=== PATIENT | male | born 1990 | race Two or more races ===

== ENCOUNTER 2020-02-27 20:07 | Emergency (ER) | payer SELFPAY ==
[~2020-02-27] VITALS: Ht 180.3 cm; Wt 81.6 kg
[2020-02-27 20:10] VITALS: BP 143/96
--- NOTE | 2020-02-27 20:10 | NUR ---
ED Nurse Note: Pt denies wanting to harm himself.
--- NOTE | 2020-02-27 20:10 | NUR ---
ED Nurse Note: Pt brought into ED by [facility] 68 from a [facility] house for drug OD on unknown substance. Per [facility], staff at house states pt has tendency of using opiates. Pt states "I took a bunch of pills". Pt also admits to using alcohol today. Unknown substance of drugs and quanity noted. Pt presents awake and able to state his name but is lethargic. Pt connected to court monitor, placed in gown. IV access already established en route by [facility], labs drawn and sent to lab.
--- NOTE | 2020-02-27 20:15 | NUR ---
ED Nurse Note: Pt has consistent hiccups. Oxygen saturation is 100% on RA.
--- NOTE | 2020-02-27 20:43 | Emergency Room Report ---
History of Present Illness General Chief Complaint: Overdose Source: EMS Present Illness HPI Disclaimer: Please note that this report is being documented using DRAGON technology. This can lead to erroneous entry secondary to incorrect interpretation by the dictating instrument. HPI: 29-year-old male presents for evaluation of altered mental status. He was found outside a [facility] house by EMS for suspected drug abuse. The patient admits to taking several pills but cannot specify which. Also admits to drinking alcohol. He is otherwise mumbling nonsensically moving all extremities , difficulty with concentrating and somnolent. He appears intoxicated. No evidence of trauma. Patient cannot provide any significant history. PMH: Unable to obtain PSH: Unable to obtain Allergies: Haldol reported by EMS Social Hx: Unable to obtain Allergies: Coded Allergies: HALOPERIDOL (Verified Allergy, Unknown, 02/27/20) COVID-19 Screening Contact w/high risk pt: No Recent Travel to affected area: No Experienced COVID-19 symptoms?: No Nursing Documentation-PMH Past Medical History: No Stated History Review of Systems All Other Systems: negative except mentioned in HPI Physical Exam Vital Signs Date Time Temp Pulse Resp B/P (MAP) Pulse Ox O2 Delivery O2 Flow Rate FiO2 02/27/20 20:00 98.2 96 16 143/96 (112) 100 Room Air General: Awake, altered, no acute distress HEENT: NC/AT. EOMI. pupils are approximately 3 mm and weakly reactive bilaterally. Dry mucous membranes. Cardiovascular: RRR. S1 and S2 normal. No murmur appreciated Resp: Normal work of breathing. No cough, wheezing or crackles appreciated Abdomen: Abdomen is soft, nondistended. Nontender Skin: Intact. No abrasions, laceration or rash over the exposed skin MSK: Normal tone and bulk. Moving all extremities. No obvious deformity. Neuro: Awake, confused, mumbling incoherently. Occasionally will answer questions appropriately. Somnolent. GCS 13. Medical Decision Making Diagnostic Impression: Primary Impression: Alcohol intoxication ER Course 29-year-old male presents for evaluation of altered mental status. Differential includes was not limited to intoxication, drug abuse, electrolyte abnormality, dehydration, sepsis, trauma. Arrives with stable vital signs though acutely confused and altered. He is protecting his airway his GCS is 15. No evidence of trauma on exam and the patient does not appear septic at this time. Suspect intoxication or drug abuse and the patient admits to this as well. Labs were largely unremarkable aside from elevated alcohol level of 360. The patient was initially combative with staff and soft restraints were required however those were quickly discontinued. The patient will be allowed to metabolize in the emergency department and discharge once he is clinically sober. Laboratory Tests Test 02/27/20 20:15 02/27/20 21:20 White Blood Count 10.1 K/UL (4.8-10.8) Red Blood Count 5.30 M/UL (4.70-6.10) Hemoglobin 14.4 G/DL (14.2-18.0) Hematocrit 44.9 % (42.0-52.0) Mean Corpuscular Volume 85 FL (80-99) Mean Corpuscular Hemoglobin 27.1 PG (27.0-31.0) Mean Corpuscular Hemoglobin Concent 31.9 G/DL (32.0-36.0) L Red Cell Distribution Width 13.3 % (11.6-14.8) Platelet Count 358 K/UL (150-450) Mean Platelet Volume 6.3 FL (6.5-10.1) L Neutrophils (%) (Auto) 65.8 % (45.0-75.0) Lymphocytes (%) (Auto) 26.0 % (20.0-45.0) Monocytes (%) (Auto) 6.6 % (1.0-10.0) Eosinophils (%) (Auto) 0.8 % (0.0-3.0) Basophils (%) (Auto) 0.9 % (0.0-2.0) Sodium Level 142 MMOL/L (136-145) Potassium Level 3.7 MMOL/L (3.5-5.1) Chloride Level 105 MMOL/L (98-107) Carbon Dioxide Level 23 MMOL/L (21-32) Anion Gap 15 mmol/L (5-15) Blood Urea Nitrogen 10 mg/dL (7-18) Creatinine 1.0 MG/DL (0.55-1.30) Estimated Glomerular Filtration Rate > 60 mL/min (>60) Glucose Level 113 MG/DL (74-106) H Calcium Level 8.8 MG/DL (8.5-10.1) Total Bilirubin 0.4 MG/DL (0.2-1.0) Aspartate Amino Transferase (AST) 23 U/L (15-37) Alanine Aminotransferase (ALT) 31 U/L (12-78) Alkaline Phosphatase 81 U/L (46-116) Total Protein 8.2 G/DL (6.4-8.2) Albumin 4.4 G/DL (3.4-5.0) Globulin 3.8 g/dL Albumin/Globulin Ratio 1.2 (1.0-2.7) Salicylates Level 2.0 ug/mL (2.8-20) L Acetaminophen Level < 2 MCG/ML (10-30) L Serum Alcohol 360 mg/dL Urine Opiates Screen Negative (NEGATIVE) Urine Barbiturates Screen Negative (NEGATIVE) Phencyclidine (PCP) Screen Negative (NEGATIVE) Urine Amphetamines Screen Negative (NEGATIVE) Urine Benzodiazepines Screen Negative (NEGATIVE) Urine Cocaine Screen Negative (NEGATIVE) Urine Marijuana (THC) Screen Negative (NEGATIVE) EKG Diagnostic Results EKG Time: 20:14 Rate: normal Rhythm: NSR ST Segments: no acute changes Other Impression Sinus tachycardia with normal axis, normal intervals, no ST segment changes. Rhythm Strip Diag. Results Rhythm Strip Time: 20:14 EP Interpretation: yes Rate: 90s Rhythm: NSR, no PVC's, no ectopy Last Vital Signs Date Time Temp Pulse Resp B/P (MAP) Pulse Ox O2 Delivery O2 Flow Rate FiO2 02/27/20 20:00 98.2 96 16 143/96 (112) 100 Room Air Disposition: HOME, SELF-CARE Condition: Stable Zhen Meza MD February 27, 2020 20:43
[2020-02-27 21:02] LABS: BASOPHILS % (AUTO) 0.9 % (0.0-2.0); EOSINOPHILS % (AUTO) 0.8 % (0.0-3.0); HEMATOCRIT 44.9 % (42.0-52.0); HEMOGLOBIN 14.4 G/DL (14.2-18.0); MEAN CORPUSCULAR VOLUME 85 FL (80-99); MONOCYTES % (AUTO) 6.6 % (1.0-10.0); NEUTROPHILS % (AUTO) 65.8 % (45.0-75.0); PLATELET COUNT 358 K/UL (150-450); RED CELL DISTRIBUTION WIDTH 13.3 % (11.6-14.8); WHITE BLOOD COUNT 10.1 K/UL (4.8-10.8)
[2020-02-27 21:03] LABS: ANION GAP 15 mmol/L (5-15); BLOOD UREA NITROGEN 10 mg/dL (7-18); CALCIUM 8.8 MG/DL (8.5-10.1); CARBON DIOXIDE 23 MMOL/L (21-32); CHLORIDE 105 MMOL/L (98-107); POTASSIUM 3.7 MMOL/L (3.5-5.1); SODIUM 142 MMOL/L (136-145)
[2020-02-27 21:09] LABS: ALANINE AMINOTRANSFERASE 31 U/L (12-78); ALBUMIN 4.4 G/DL (3.4-5.0); ALBUMIN/GLOBULIN RATIO 1.2 (1.0-2.7); ALKALINE PHOSPHATASE 81 U/L (46-116); ASPARTATE AMINO TRANSFERASE 23 U/L (15-37); BILIRUBIN,TOTAL 0.4 MG/DL (0.2-1.0)
--- NOTE | 2020-02-27 22:00 | NUR ---
ED Nurse Note: Pt is laying in bed. NAD.
--- NOTE | 2020-02-27 23:30 | NUR ---
ED Nurse Note: Pt is able to ambulate with steady gait to restroom, ERMD witnessed. Pt is asking to leave.
[2020-02-27 23:55] VITALS: BP 135/85
--- NOTE | 2020-02-27 23:55 | NUR ---
ER DISCHARGE NOTE: Patient is cleared to be discharged per ERMD, pt is aox4, on room air, with stable vital signs. pt was given dc instructions, pt was able to verbalize understanding, pt id band and iv site removed without complications. pt is able to ambulate with steady gait. pt took all belongings.
== END 2020-02-27 23:55 | disposition home or self-care (01) ==
LOC: EDBD 20:07 → EMR 20:37
DX: F10.129 Alcohol abuse with intoxication, unspecified (principal); Z88.8 Allergy status to other drugs, medicaments and biological substances
CPT/HCPCS: 36415; 80053; 80307; 85025; 93005; 99284; G0480